=== PATIENT | female | born 1980 | race American Indian/Alaskan Native ===

== ENCOUNTER 2016-07-16 18:46 | Emergency (ER) | payer OTHER ==
[~2016-07-16 18:46] MED LIST: ALPR0.25 PO; ESTR0.5T PO
[2016-07-16 19:02] VITALS: BP 122/70
--- NOTE | 2016-07-16 20:24 | PHYS DOC ---
Past Medical History Past Medical History: Anxiety Past Surgical History: Hysterectomy Smoking: Less than 1pk/day Alcohol Use: None Drug Use: None Adult General Chief Complaint Chief Complaint: HAND PROBLEM HPI HPI Patient is a 35 year old female who presents with right hand pain after fall 4 days ago. She reports that she tripped over a slightly and fell, landing on her right hand. She was seen at an urgent care 2 days later and had x-ray with diagnosed metacarpal fracture. She was put into a splint and discharged home. The patient began to feel increased pain and felt like her circulation was decreased, so she removed the splint. She arrives to the emergency department with an Barrett wrap around her hand. She requests a new splint to be applied and referral to an orthopedic doctor. Her PCP is Dr. Clive Brand. Review of Systems Review of Systems Constitutional: Denies fever or chills. [] Musculoskeletal: Denies back pain or joint pain. Reports right hand pain and swelling. Integument: Denies rash or skin lesions. Reports right hand ecchymosis. Neurologic: Denies headache, focal weakness or sensory changes. [] Allergies Allergies Allergies Coded Allergies Type Severity Reaction Last Updated Verified No Known Drug Allergies 01/14/14 No Physical Exam Physical Exam Constitutional: Well developed, well nourished, no acute distress, non-toxic appearance. [] HENT: Normocephalic, atraumatic, oropharynx moist. [] Eyes: PERRLA, EOMI, conjunctiva normal, no discharge. [] Skin: Warm, dry, no erythema, no rash. There is healing ecchymosis over the fourth and fifth metacarpals of the right hand without laceration or abrasion. Extremities: Right fourth and fifth metacarpal tenderness, ROM intact, mild edema. 2+ radial and ulnar pulses. Less than 2 second capillary refill in the fingers. Light touch sensation intact in the fingers. Neurologic: Alert and oriented X 3, normal motor function, normal sensory function, no focal deficits noted. [] Psychologic: Affect normal, judgement normal, mood normal. [] Current Patient Data Vital Signs Vital Signs Date Time Temp Pulse Resp B/P Pulse Ox O2 Delivery O2 Flow Rate FiO2 07/16/16 19:02 97.6 77 18 100 Room Air 97.6 EKG EKG [] Radiology/Procedures Radiology/Procedures [] Course & Med Decision Making Course & Med Decision Making Pertinent Labs and Imaging studies reviewed. (See chart for details) The patient brought along her x-rays from urgent care. Review of these x-rays reveals a fracture of the fourth metacarpal without significant displacement. The patient was placed in an Ortho-Glass ulnar gutter splint by radiographic technologist. She remains neurovascularly intact without evidence of compartment syndrome after splint application. She has a prescription for Cross 10/325 at home. She is given contact information for orthopedics for follow-up. Return precautions were discussed. She verbalizes understanding and agrees with plan. Dragon Disclaimer Dragon Disclaimer This electronic medical record was generated, in whole or in part, using a voice recognition dictation system. Departure Departure Impression: Primary Impression: Fracture, metacarpal Disposition: 01 HOME, SELF-CARE Condition: STABLE Referrals: CLIVE BRAND MD (PCP) DAGOBERTO MARTI MD Patient Instructions: Hand Fracture, Metacarpals, [id number] Additional Instructions: Your xray shows a break in the fourth metacarpal bone. Your splint was reapplied. Please keep it on and dry until follow-up with the orthopedic doctor. You may adjust Barrett wrap around the outside if needed. Please follow-up with the orthopedic doctor listed below. Please take your home pain medication as prescribed. Return to emergency department if you have any new or concerning symptoms. Problem Qualifiers Primary Impression: Fracture, metacarpal Encounter type: initial encounter Metacarpal bone: fourth Fracture type: closed Metacarpal location: shaft Fracture alignment: nondisplaced Laterality: right Qualified Code: S62.354A - Nondisplaced fracture of shaft of fourth metacarpal bone, right hand, initial encounter for closed fracture CHER FRANKEL Jul 16, 2016 20:24
== END 2016-07-16 20:45 | disposition home or self-care (01) ==
LOC: ER 18:46
DX: S62.354A Nondisplaced fracture of shaft of fourth metacarpal bone, right hand, initial encounter for closed fracture (principal); F17.200 Nicotine dependence, unspecified, uncomplicated; W18.09XA Striking against other object with subsequent fall, initial encounter; Y93.89 Activity, other specified; Y92.89 Other specified places as the place of occurrence of the external cause; Y99.8 Other external cause status
CPT/HCPCS: 29125; 99283-25

== ENCOUNTER 2016-07-21 21:25 | Emergency (ER) | payer OTHER ==
[2016-07-21 21:34] VITALS: BP 146/85
[2016-07-21] MEDS ORDERED: CYCLOBENZAPRINE 10 MG TABLET. PO ONE (22:00)
[2016-07-21] MEDS ORDERED: HYDROCODONE/APAP 10/325 TABLET. PO ONE (22:00)
[2016-07-21] MEDS ORDERED: METH4TAB2 PO (22:10)
[2016-07-21] MEDS ORDERED: HYDR-963 PO (22:10)
[2016-07-21] MEDS ORDERED: GABA-586 PO (22:10)
[2016-07-21] MEDS ORDERED: CYCL10TA2 PO (22:10)
--- NOTE | 2016-07-21 22:11 | PHYS DOC ---
Past Medical History Past Medical History: Anxiety Past Surgical History: Hysterectomy Alcohol Use: None Drug Use: None Adult General Chief Complaint Chief Complaint: UPPER EXTREMITY PAIN HPI HPI Patient is a 35 year old female who presents with right hand pain with numbness that has been going on intermittently since she was splinted a week ago. Patient states she fell down one and half weeks ago and fractured her right metacarpal. Patient states she was initially seen at urgent care then 2 days later which is July 16, 2016 she came to the ED stating she has numbness and tingling to the fingers, they re-splinted her again and was sent home to follow-up with an orthopedic doctor. Patient states she has an appointment next Monday at 10 AM. Patient also states the hydrocodone 10/325mg she was given is not helping with her pain, she states she is supposed to get a gabapentin called into her local pharmacy by her own PCP but she is not sure if they called it in or not. Patient states she took her last hydrocodone. Patient denies any new injuries. Review of Systems Review of Systems Constitutional: Denies fever or chills [] Musculoskeletal: Right hand pain and numbness Integument: Denies rash or skin lesions [] Neurologic: Denies headache, focal weakness or sensory changes [] Endocrine: Denies polyuria or polydipsia [] Current Medications Current Medications Current Medications Medications (Trade) Dose Ordered Sig/Vanesa Start Time Stop Time Status Last Admin Dose Admin Acetaminophen/ Hydrocodone Bitart (Lortab 10/325) 1 tab 1X ONCE 07/21/16 22:00 07/21/16 22:01 DC 07/21/16 22:15 1 TAB Cyclobenzaprine HCl (Flexeril) 10 mg 1X ONCE 07/21/16 22:00 07/21/16 22:01 DC 07/21/16 22:15 10 MG Gabapentin (Neurontin) 300 mg 1X ONCE 07/21/16 22:15 07/21/16 22:16 DC 07/21/16 22:15 300 MG Allergies Allergies Allergies Coded Allergies Type Severity Reaction Last Updated Verified No Known Drug Allergies 01/14/14 No Physical Exam Physical Exam Constitutional: Well developed, well nourished, no acute distress, non-toxic appearance. [] Skin: Warm, dry, no erythema, no rash. [] Back: No tenderness, no CVA tenderness. [] Extremities: Right hand and forearm is splinted. All the 5 fingers appear pink warm with very good cap refill less than 2 seconds. Adequate ulnar medial and radial sensation to the right fingers. Neurologic: Alert and oriented X 3, normal motor function, normal sensory function, no focal deficits noted. [] Psychologic: Affect normal, judgement normal, mood normal. [] Current Patient Data Vital Signs Vital Signs Date Time Temp Pulse Resp B/P Pulse Ox O2 Delivery O2 Flow Rate FiO2 07/21/16 21:34 97.7 89 22 99 Room Air 97.7 EKG EKG [] Radiology/Procedures Radiology/Procedures [] Course & Med Decision Making Course & Med Decision Making Pertinent Labs and Imaging studies reviewed. (See chart for details) Patient has right hand metacarpal fracture which occurred one half weeks ago and she is splinted. She is in the ED complaining of numbness and pain to the right hand. Neurovascular exam of the right fingers is normal, there is no sign of compartment syndrome. Reassured her, recommended a sling and elevation of the extremity, ice also recommended. Recommended that follow-up with orthopedic doctor on Monday as scheduled. Give her prescription for gabapentin, and 8 tablets of [place] to use until Monday. 22:44 [facility] CALLED ME STATING PATIENT HAS FILLED RX FOR 120 TABLETS OF HYDROCODONE TODAY. I DECLINED TO FILL ANY OF HER PRESCRIPTIONS. 22:48 patient calls me complaining on why I refused to fill her prescriptions. She is yelling on the phone stating she never laid she didn't have any pain medicine. Informed patient I will not fill a prescription for a any of her pain medicine considering she picked 120 tablets of hydrocodone. Patient said "GO FUCK YOURSELF" i am going to make a big complain tomorrow. I told her i will be glad to give her a number to fill her complaint. She hanged up. Dragon Disclaimer Dragon Disclaimer This electronic medical record was generated, in whole or in part, using a voice recognition dictation system. Departure Departure Impression: Primary Impression: Fracture, metacarpal Additional Impression: Drug-seeking behavior Disposition: HOME, SELF-CARE Condition: STABLE Referrals: SHIVAM BRAND MD (PCP) DAGOBERTO MARTI MD see him on Monday as scheduled Patient Instructions: Hand Fracture, Metacarpals Additional Instructions: You were seen for pain and numbness to the right hand, you have a metacarpal fracture. Your neurovascular exam is normal. Keep the hand elevated and iced, we provided you a sling use it as needed. Come back to the emergency room if you develop any loss of sensation to the hand, blue or purple discoloration to the fingers. Complete loss of sensation to the fingers. Scripts Hydrocodone/Apap 10-325 ([place] 10-325 Tablet)1 Each Tablet1 Tab PO Q8HRS #8 TAB Prov:ALEXANDRIA CAMPOS APRN 07/21/16 Cyclobenzaprine Hcl 10 Mg Tablet1 Tab PO TID #30 TAB Prov:ALEXANDRIA CAMPOS APRN 07/21/16 Methylprednisolone (Medrol)4 Mg Tab.ds.pk1 Pkg PO UD #1 PKG Prov:ALEXANDRIA CAMPOS APRN 07/21/16 Gabapentin 300 Mg [id number] Mg PO TID #30 CAP Prov:ALEXANDRIA CAMPOS APRN 07/21/16 Problem Qualifiers Primary Impression: Fracture, metacarpal Encounter type: sequela Fracture type: closed Metacarpal location: other portion of metacarpal Fracture morphology: unspecified fracture morphology Fracture alignment: nondisplaced Qualified Code: S62.308S - Unspecified fracture of other metacarpal bone, sequela ALEXANDRIA CAMPOS APRN Jul 21, 2016 22:11
[2016-07-21] MEDS ORDERED: GABAPENTIN 300 MG CAPSULE. PO ONE (22:15)
== END 2016-07-21 22:49 | disposition home or self-care (01) ==
LOC: ER 21:25
DX: S62.308S Unspecified fracture of other metacarpal bone, sequela (principal); Z76.5 Malingerer [conscious simulation]; F41.9 Anxiety disorder, unspecified; Z90.710 Acquired absence of both cervix and uterus; W19.XXXD Unspecified fall, subsequent encounter
CPT/HCPCS: 99284